=== PATIENT | female | born 1995 ===

== ENCOUNTER 2025-01-22 19:45 | Outpatient (REF) | payer BC, SELFPAY ==
[2025-01-27 20:09] LABS: Age Gdln ACOG Testing Note (.); IGP, rfx Aptima HPV ASCU Note (.)
== END 2025-01-22 19:46 | disposition home or self-care (01) ==
LOC: LAB 19:45
PROVIDERS: Visit Provider Obstetrics & Gynecology
DX: Z01.419 Encounter for gynecological examination (general) (routine) without abnormal findings (principal)
CPT/HCPCS: 88175